=== PATIENT | female | born 2000 | race Caucasian/White ===

== ENCOUNTER 2019-02-05 00:21 | Day surgery (SDC) | payer OTHER, MEDICAID ==
[2015-09-19 10:45] VITALS: Ht 154.9 cm; Wt 44.0 kg
[~2019-02-05] VITALS: Ht 154.9 cm; Wt 44.0 kg
[~2019-02-05 00:21] MED LIST: ACET-1718 PO; CEPH-13 PO; IBUP800T37 PO; LOR5/325 PO; OMEP-125 PO; PNV11TAB; RANI-366 PO
[2019-02-05] MEDS ORDERED: NORMOSOL R SOLN(*) 1000 ML BAG 1,000 ML IV PRN (12:40)
[2019-02-05] MEDS ORDERED: LIDOCAINE/SOD BICARB 8.4% SYR ID ONE (12:40)
[2019-02-05 12:49] VITALS: BP 112/79
[2019-02-05 14:35] VITALS: BP 99/65
--- NOTE | 2019-02-05 14:41 | NUR ---
1435 SBAR REPORT WAS RECEIVED FROM DR. VILLAREAL AND NAOMI ALFARO RN. PATIENT IS BREATHING SPONTANEOUSLY AT A MODERATE RATE AND DEPTH. LUNGS ARE CLEAR. SHE ARRIVED ON 2 LITERS HIGH FLOW CANNULA. BOWEL SOUNDS ARE HYPERACTIVE BOWEL SOUNDS. SHE DENIES ANY PAIN OR NAUSEA. 1437 O2 WAS REMOVED. SHE IS TOLERATING ROOM AIR WELL 1438 DR. SIDDIQI WAS IN TO SEE PATIENT. 1440 PATIENT BEGAN EATING PUDDING AND IS TOLERATING THIS WELL.
[2019-02-05 15:14] VITALS: BP 103/64
[2019-02-05 15:15] VITALS: BP 101/74
--- NOTE | 2019-02-05 15:25 | NUR ---
1513 FINISHED DC INSTRUCTIONS WITH PATIENT AND BOYFRIEND. THEY VERBALIZED UNDERSTANDING 1520 IV WAS DC'D WITH CATH INTACT 1525 PATIENT WAS TAKEN OUT AMBULATORY ON DC. SHE DENIES ANY PAIN OR NAUSEA. SHE WAS STABLE ON HER FEET. BOWEL SOUNDS WERE HYPERACTIVE. SEE DISCHARGE ASSESSMENT.
== END 2019-02-05 15:25 | disposition home or self-care (01) ==
LOC: OR 00:21
PROVIDERS: ATTEND Internal Medicine Gastroenterology
DX: R19.7 Diarrhea, unspecified (principal); K20.9 Esophagitis, unspecified; K29.70 Gastritis, unspecified, without bleeding
CPT/HCPCS: 36415; 84703; 88305; 88313; 88342

== ENCOUNTER → 2019-03-31 | Outpatient (CLI) | payer OTHER ==
[2015-09-19 10:45] VITALS: BMI 28.0
[~2019-03-31] MED LIST changes: +DOXY-179 PO; -OMEP-125 PO; +OMEP-126 PO; -RANI-366 PO; +RANI-54 PO
== END ==
LOC: LAB 14:48
PROVIDERS: ATTEND Physician Assistant
DX: O20.0 Threatened abortion (principal)
CPT/HCPCS: 36415; 84702